=== PATIENT | female | born 1940 | race Caucasian/White ===

== ENCOUNTER 2017-04-18 11:46 | Observation (INO) | payer MEDICARE ==
[~2017-04-18] VITALS: Ht 160 cm; Wt 56.7 kg
[2017-04-18 12:11] LABS: HEMATOCRIT 51.7 % (34.6-47.8); HEMOGLOBIN 17.5 g/dL (11.7-16.4); WHITE BLOOD COUNT 5.1 x10^3/uL (3.4-10)
[2017-04-18 12:22] LABS: ASPARTATE AMINO TRANSFERASE 32 U/L (15-37); BLOOD UREA NITROGEN 10 mg/dL (7-18)
[2017-04-18 12:24] LABS: ACETAMINOPHEN < 2 mcg/mL (10-30)
[2017-04-18] MEDS ORDERED: ACETAMINOPHEN 325 MG TABLET PO PRN (15:30)
[2017-04-18] MEDS ORDERED: POLYETHYLENE GLYCOL 17 GM PACKET PO PRN (15:30)
[2017-04-18] MEDS ORDERED: ONDANSETRON ODT 4 MG PO PRN (15:30)
[2017-04-18] MEDS ORDERED: DIPHENHYDRAMINE 50 MG CAPSULE PO PRN (15:30)
[2017-04-18] MEDS ORDERED: DOCUSATE 100 MG CAPSULE PO PRN (15:30)
[2017-04-18] MEDS ORDERED: HALOPERIDOL 5 MG/ML IM PRN (15:30)
[2017-04-18 18:56] VITALS: BP 116/73
[2017-04-18 19:54] LABS: DAU SCREEN DISCLAIMER
[2017-04-18 20:06] LABS: PATH.CAST-FLAG NOT PRESENT; SPERM-FLAG NOT PRESENT; SRC-FLAG NOT PRESENT; XTAL-FLAG NOT PRESENT; YLC-FLAG NOT PRESENT
[2017-04-19] MEDS: CIPROFLOXACIN 500 MG TABLET PO SCH ×2 (09:00→21:00)
[2017-04-19] MEDS: SENNA/DOCUSATE TABLET PO SCH (09:00)
[2017-04-20] MEDS: CIPROFLOXACIN 500 MG TABLET PO SCH (08:15)
[2017-04-20] MEDS: SENNA/DOCUSATE TABLET PO SCH (08:15)
[2017-04-21] MEDS: SENNA/DOCUSATE TABLET PO SCH (09:33)
[2017-04-22] MEDS: SENNA/DOCUSATE TABLET PO SCH (08:52)
[2017-04-22 19:44] VITALS: BP_SYST 0
[2017-04-23] MEDS: SENNA/DOCUSATE TABLET PO SCH (09:00)
[2017-04-23 19:41] VITALS: BP_SYST 0
[2017-04-24 01:41] VITALS: BP_SYST 0
[2017-04-24] MEDS: SENNA/DOCUSATE TABLET PO SCH (09:00)
[2017-04-24 19:56] VITALS: BP_SYST 0
[2017-04-24] MEDS ORDERED: ENOXAPARIN 40 MG/0.4 ML SQ SCH (21:00)
[2017-04-25 01:19] VITALS: BP 178/63
[2017-04-25] MEDS: SENNA/DOCUSATE TABLET PO SCH (07:37)
[2017-04-25 07:48] VITALS: BP_SYST 0
== END 2017-04-25 13:55 ==
LOC: ED 14:44 → SUATTDRO 15:24 → EDIP 15:25 → 3NE 18:35
PROVIDERS: ADMIT Family Medicine; ATTEND Family Medicine
DX: F22 Delusional disorders (principal); R62.7 Adult failure to thrive
CPT/HCPCS: 36415; 71010; 80053; 80307; 80329; 81001; 82962; 84443; 85025; 87086; 93005; 96372; 99285; G0378; J1630; G0479; G0480